=== PATIENT | male | born 1995 | race Caucasian/White ===

== ENCOUNTER 2020-04-13 02:57 | Emergency (ER) | payer OTHER ==
[~2020-04-13] VITALS: Ht 170.2 cm; Wt 63.5 kg
[2020-04-13 03:00] VITALS: BP 127/72
[2020-04-13] MEDS ORDERED: BACITRACIN OINT 500 UNITS/GM PKT TP ONE (03:35)
[2020-04-13 04:02] VITALS: BP 127/72
--- NOTE | 2020-04-13 04:02 | NUR ---
PATIENT BIB [employer]. PATIENT EXAMINED BY DR. BETH. PATIENT MEDICALLY CLEARED AND RELEASED IN CUSTODY IN STABLE CONDITION. ORIGINAL PRE-BOOK FORM GIVEN TO OFFICER MOR.
== END 2020-04-13 04:02 ==
LOC: MED 02:57
DX: T14.8XXA Other injury of unspecified body region, initial encounter (principal); Z02.89 Encounter for other administrative examinations; V49.3XXA Car occupant (driver) (passenger) injured in unspecified nontraffic accident, initial encounter; Y93.89 Activity, other specified; Y92.89 Other specified places as the place of occurrence of the external cause; Y99.8 Other external cause status
CPT/HCPCS: 99283